=== PATIENT | male | born 1985 | race Two or more races ===

== ENCOUNTER 2022-04-05 17:25 | Emergency (ER) | payer BC ==
[~2022-04-05] VITALS: Ht 170.2 cm; Wt 83.9 kg
[2022-04-05] MEDS ORDERED: CIPRO500 MG PO (20:22)
== END 2022-04-05 20:34 | disposition home or self-care (01) ==
LOC: ER 17:25
DX: S91.129A Laceration with foreign body of unspecified toe(s) without damage to nail, initial encounter (principal); W45.8XXA Other foreign body or object entering through skin, initial encounter; Y93.9 Activity, unspecified; Y92.814 Boat as the place of occurrence of the external cause